=== PATIENT | female | born 1950 | race Caucasian/White ===

== ENCOUNTER → 2017-03-20 | Outpatient (CLI) | payer BC ==
[~2017-03-20] MED LIST: ALBU1AER9 INH; ASCO1CAP3 PO; CALCTAB5 PO; FLUT0.15; FLUT110A INH; MISCCAP80 PO; SRVDIN60 INH
[2017-03-20 12:26] LABS: BLOOD UREA NITROGEN 15 mg/dl (7-18); BUN/CREATININE RATIO 19.8 (10-20); CALCIUM 8.9 mg/dl (8.5-10.1); CARBON DIOXIDE 26 mmol/L (21-32); CHLORIDE 107 mmol/L (98-107); CREATININE 0.78 mg/dl (0.60-1.20); GLUCOSE 104 mg/dl (70-99); POTASSIUM 3.7 mmol/L (3.5-5.1); SODIUM 140 mmol/L (136-145)
[2017-03-20 12:30] LABS: CHOLESTEROL 262 mg/dl (0-200); CHOLESTEROL/HDL RATIO 5.1; HDL CHOLESTEROL 51 mg/dl; LDL CHOLESTEROL CALCULATED 161 mg/dl; TRIGLYCERIDES 250 mg/dl (0-150); VERY LOW DENSITY LIPOPROT CALC 50 mg/dl
== END | disposition home or self-care (01) ==
LOC: C.LABPBG 08:18
PROVIDERS: ATTEND Family Medicine
DX: E78.5 Hyperlipidemia, unspecified (principal); Z11.59 Encounter for screening for other viral diseases

== ENCOUNTER 2017-06-12 07:01 | Inpatient (IN) | payer BC, OTHER ==
[2017-05-12 11:32] VITALS: Ht 156.2 cm; Wt 79.0 kg
--- NOTE | 2017-05-12 12:13 | PAT Medication Instructions ---
Service Date May 12, 2017. Current Home Medication List Albuterol Sulfate (Proair Respiclick), 2 PUFFS INH PRN Azithromycin (Zithromax), 250 MG PO QAM Diclofenac (Voltaren), 75 MG PO BID Fish Oil (Wheeling-3), 1 CAP PO QAM Fluticasone Propionate (Inhala (Flovent Diskus), 1 PUFFS INH BID Fluticasone Propionate (Nasal) (Flonase Allergy Relief), 2 SPRAYS INTNAS QPM Hydrocodone/Acetaminophen 5MG/325MG (Cutler 5MG/325MG), 1 TABLET PO PRN PRN for Pain Ibuprofen (Advil), 400-800 MG PO PRN Multivitamin (Multivitamin), 1 TAB PO QAM Prednisone (Prednisone), 10 MG PO TAPERING DOSE Salmeterol Xinafoate (Serevent Diskus), 50 MCG INH BID Medication Instructions For Your Scheduled Surgery -Continue as directed: Azithromycin (Zithromax), 250 MG PO QAM Prednisone (Prednisone), 10 MG PO TAPERING DOSE -Contact your surgeon for instructions for: Diclofenac (Voltaren), 75 MG PO BID Ibuprofen (Advil), 400-800 MG PO PRN - Hold the following medications 2 weeks prior to surgery: Fish Oil (Wheeling-3), 1 CAP PO QAM - Hold the following medications the morning of surgery: Multivitamin (Multivitamin), 1 TAB PO QAM - Take the following medications the morning of surgery with a sip of water: Salmeterol Xinafoate (Serevent Diskus), 50 MCG INH BID Fluticasone Propionate (Inhala (Flovent Diskus), 1 PUFFS INH BID Hydrocodone/Acetaminophen 5MG/325MG (Cutler 5MG/325MG), 1 TABLET PO PRN PRN for Pain (if needed, can be taken up to four hours before surgery) Albuterol Sulfate (Proair Respiclick), 2 PUFFS INH PRN (if needed, and bring it with you the morning of the surgery) - Take the following medications as scheduled the night before surgery: Salmeterol Xinafoate (Serevent Diskus), 50 MCG INH BID Fluticasone Propionate (Inhala (Flovent Diskus), 1 PUFFS INH BID Fluticasone Propionate (Nasal) (Flonase Allergy Relief), 2 SPRAYS INTNAS QPM Hydrocodone/Acetaminophen 5MG/325MG (Cutler 5MG/325MG), 1 TABLET PO PRN PRN for Pain (if needed) If you have any questions please call us at [phone] or [phone] or [phone]
[2017-05-12 12:43] LABS: BASO % 0.6 %; BASO ABS # 0.05 K/uL (0-0.2); EOS % 0.2 %; EOS ABS # 0.02 K/uL (0-0.5); HEMATOCRIT 40.1 % (37-47); HEMOGLOBIN 13.8 g/dL (12.0-16.0); IG# 0.03 K/uL (0.00-0.02); LYMPH % 13.5 %; LYMPH ABS # 1.09 K/uL (1.2-3.4); MEAN CELL VOLUME 89.1 fL (80-100); MEAN CORPUSCULAR HEMOGLOBIN 30.7 pg (25-34); MEAN CORPUSCULAR HGB CONC 34.4 g/dl (32-36); MEAN PLATELET VOLUME 9.1 fL (7.4-10.4); MONO ABS # 0.24 K/uL (0.11-0.59); NEUT % 82.3 %; NEUT ABS # 6.63 K/uL (1.4-6.5); PLATELET COUNT 361 K/uL (130-400); RED CELL DISTRIBUTION WIDTH CV 13.7 % (11.5-14.5); RED CELL DISTRIBUTION WIDTH SD 44.3 fL (36.4-46.3); WHITE BLOOD COUNT 8.06 K/uL (4.8-10.8)
[2017-05-12 12:50] LABS: PTT PATIENT 28.2 SECONDS (21.0-31.0)
--- NOTE | 2017-05-12 13:17 | DIAGNOSTIC IMAGING REPORT ---
TWO VIEW CHEST CLINICAL HISTORY: Preoperative examination. FINDINGS: PA and lateral chest radiographs are compared to study dated 02/11/2015. The cardiomediastinal silhouette is unremarkable. The lungs and pleural spaces are clear. There is no pneumothorax. The skeletal structures are osteopenic. The bony thorax appears intact. IMPRESSION: No active disease in the chest. Electronically signed by: Dawit Mora M.D. 05/12/2017 1:15 PM Dictated Date/Time: 05/12/2017 1:15 PM
[2017-05-12 13:57] LABS: CALCIUM 9.6 mg/dl (8.5-10.1); CREATININE 0.88 mg/dl (0.60-1.20); POTASSIUM 3.8 mmol/L (3.5-5.1)
--- NOTE | 2017-06-11 16:05 | HISTORY & PHYSICAL EXAMINATION ---
DATE OF ADMISSION: 06/12/2017 CHIEF COMPLAINT: Advanced osteoarthritis bilateral knees. HISTORY OF PRESENT ILLNESS: Gely is a very pleasant 67-year-old female who I did a partial medial meniscectomy on her left knee in the past. Unfortunately, she has gone on to develop advanced osteoarthritis of both knees. Her knee pain has gotten to the point where she is having trouble doing simple daily activities. After failing extensive conservative treatment including multiple injections, she has elected to proceed with bilateral total knee arthroplasties. PAST MEDICAL HISTORY: Significant for hyperlipidemia, asthma and obesity. MEDICATIONS: ProAir 2 puffs as needed, Zithromax 250 mg daily, Voltaren as needed for pain, Flonase 1 puff twice a day, prednisone 10 mg as a tapered dose, and Serevent Diskus 50 mcg twice a day. PAST SURGICAL HISTORY: Significant for hysterectomy, appendectomy, carpal tunnel release, lumpectomy of the breast, cataract surgery, surgery to her shoulder, left knee arthroscopy, and colonoscopy. ALLERGIES: EZETIMIBE. SOCIAL HISTORY: She denies any tobacco, alcohol or IV drug use. FAMILY HISTORY: Denies. REVIEW OF SYSTEMS: She complains of bilateral knee pain. All other pertinent review of systems are negative. PHYSICAL EXAMINATION: CONSTITUTIONAL: She is a well-developed, well-nourished female in no apparent distress. HEENT: Pupils equal, round and reactive to light. Extraocular motion intact. Oral mucosa is pink and moist. HEART: Regular rate per radial pulse. LUNGS: Naty symmetrically bilaterally with no audible breath sounds. ABDOMEN: Soft, nontender, nondistended. MUSCULOSKELETAL: On physical examination of her knee she ambulates independently. She has good range of motion from 0-130 degrees. She has significant pain along the medial joint line and over the distal medial femoral condyle. X-rays of both knees do show advanced medial compartmental arthritis with joint space narrowing and osteophyte formation. IMPRESSION: Advanced osteoarthritis bilateral knees. PLAN: Will proceed with bilateral total knee arthroplasty. Postoperatively, she will be kept in the hospital for postoperative medical management and started on aspirin for DVT prophylaxis.
[~2017-06-12] VITALS: Ht 156.2 cm; Wt 79.0 kg
[2017-06-12] VITALS (8 sets, daily range): BP systolic 115–155; BP diastolic 71–84; PULSE 67–100; TEMP 36.4–36.9; O2SAT 91–99
[2017-06-12] MEDS: ROPIVACAINE 5MG/ML 30 ML 150 MG, BUPIVACAINE 0.5% MPF INJ 30 ML, EpINEphrine HCL INJ 0.... INFIL SCH ×16 (06:01→11:07)
[2017-06-12] MEDS: TRANEXAMIC ACID INJ 1,000 MG x 2 Bags IV SCH ×4 (06:30→08:43)
[~2017-06-12 07:01] MED LIST changes: +ACETAMINOPHEN 500 MG TAB PO SCH; +ALBU18002 INH; -ALBU1AER9 INH; -ASCO1CAP3 PO; +AZIT250T PO; +BUPIVACAINE 0.25% 30 ML VIAL ONE; +BUPIVACAINE 0.5 % 5 MG/1 ML PF 10ML VIAL ONE; -CALCTAB5 PO; +CEFAZOLIN 2000MG IV PUSH 15 ML IV SCH; +DICL-201 PO; +FAMOTIDINE 20 MG TAB PO SCH; -FLUT0.15; +FLUT0.15 INTNAS; -FLUT110A INH; +FLUT1AER5 INH; +GABAPENTIN 600 MG PO SCH; +HYDR-5688 PO; +IBUP-1050 PO; +LACTATED RINGER'S 1000ML 1,000 ML IV SCH; +LACTATED RINGER'S 1000ML 500 ML IV SCH; +LACTATED RINGER'S 1000ML IV SCH; -MISCCAP80 PO; +MULT-506 PO; +OMEG10007 PO; +PATIENT'S ALLERGY INFO NEEDS ENTERED SCH; +PRED10TA PO
[2017-06-12] MEDS ORDERED: FENTANYL CITRATE INJ 50 MCG/1 ML 2 ML VIAL ONE (08:40)
[2017-06-12] MEDS ORDERED: MIDAZOLAM HCL 1 MG/ML 2ML VIAL ONE (08:40)
[2017-06-12] MEDS ORDERED: PROPOFOL IV EMULSION 10 MG/ML 20 ML VIAL IV ONE ×3 (08:40→10:36)
--- NOTE | 2017-06-12 09:14 | History & Physical Bridge Note ---
H&P Re-Evaluation Bridge Note: I have examined the patient, reviewed the History & Physical and in the interval since the performance of the History & Physical I have noted the following changes of clinical significance: No changes noted
[2017-06-12] MEDS ORDERED: ORTHO JOINT ANESTHETIC ONE (09:16)
[2017-06-12] MEDS ORDERED: BACITRACIN 50000 UNIT VIAL ONE ×2 (09:16→11:07)
[2017-06-12] MEDS ORDERED: ATROPINE SULFATE 0.1 MG/ML 5ML SYR IV PRN (09:45)
[2017-06-12] MEDS ORDERED: EpHEDrine SULFATE INJ 50 MG/ML AMP IV PRN (09:45)
[2017-06-12] MEDS ORDERED: ONDANSETRON INJ 2 MG/ML 2 ML VIAL IV PRN ×2 (09:45→12:30)
[2017-06-12] MEDS ORDERED: FENTANYL CITRATE INJ 50 MCG/1 ML 2 ML VIAL IV PRN (09:45)
[2017-06-12] MEDS ORDERED: DiphenhydrAMINE HCL 50 MG/ML VIAL ONE (10:36)
--- NOTE | 2017-06-12 12:22 | [facility] Post Operative Brief Note ---
Immediate Operative Summary Operative Date Jun 12, 2017. Pre-Operative Diagnosis Degenerative Joint Disease Bilateral Knees Post-Operative Diagnosis Degenerative Joint Disease Bilateral Knees Procedure(s) Performed Bilateral Total Knee Arthroplasty Surgeon Farooq Auto Driver Surgeon(s) Lito Estimated Blood Loss 50cc Findings Consistent with Post-Op Diagnosis Specimens A. Bone/Tissue Right Knee B. Bone/Tissue Left Knee Anesthesia Type MAC Spinal Regional Complication(s) none Disposition Disposition: Recovery Room / PACU
[2017-06-12] MEDS ORDERED: CEFAZOLIN IV 2,000 MG in DEXTROSE 5% 50ML 50 ML IV SCH (12:30)
[2017-06-12] MEDS ORDERED: MAGNESIUM HYDROXIDE SUSP 30 ML UDC PO PRN (12:30)
[2017-06-12] MEDS ORDERED: BISACODYL 10 MG SUPP PR PRN (12:30)
[2017-06-12] MEDS ORDERED: METOCLOPRAMIDE HCL INJ 5 MG/ML 2 ML VIAL IV PRN (12:30)
[2017-06-12] MEDS ORDERED: SOD PHOSPHATE/SOD BIPHOSPHATE ENEMA 132 ML BTL PR PRN (12:30)
--- NOTE | 2017-06-12 12:52 | DIAGNOSTIC IMAGING REPORT ---
R KNEE 1 OR 2 VIEWS ROUTINE CLINICAL HISTORY: AP/LATERAL IN PACU RIGHT KNEE postoperative COMPARISON: None. DISCUSSION: Anatomic alignment status post total right knee arthroplasty. Good contact between prosthetic and underlying bone. Expected soft tissue postoperative change. IMPRESSION: Anatomic alignment posttotal right knee arthroplasty. The above report was generated using voice recognition software. It may contain grammatical, syntax or spelling errors. Electronically signed by: Samson Simons M.D. 06/12/2017 12:51 PM Dictated Date/Time: 06/12/2017 12:50 PM
--- NOTE | 2017-06-12 12:53 | DIAGNOSTIC IMAGING REPORT ---
L KNEE 1 OR 2 VIEWS ROUTINE CLINICAL HISTORY: AP/LATERAL IN PACU LEFT KNEE postoperative COMPARISON: None. DISCUSSION: Patient is post total left knee arthroplasty. Good contact between prosthetic and underlying bone. Expected soft tissue postoperative change. IMPRESSION: Anatomic alignment posttotal left knee arthroplasty. The above report was generated using voice recognition software. It may contain grammatical, syntax or spelling errors. Electronically signed by: Samson Simons M.D. 06/12/2017 12:52 PM Dictated Date/Time: 06/12/2017 12:51 PM
--- NOTE | 2017-06-12 12:56 | OPERATIVE REPORT ---
DATE OF OPERATION: 06/12/2017 PREOPERATIVE DIAGNOSIS: Primary osteoarthritis of the bilateral knees. POSTOPERATIVE DIAGNOSIS: Same. PROCEDURE: Bilateral total knee arthroplasties. SURGEON: Dr. Jw Trivedi. MARKETING DEVELOPMENT MANAGER: Jw Morse PA-C, whose assistance was necessary for retraction and closure. ANESTHESIA: Spinal with bilateral adductor nerve block. COMPLICATIONS: None. CONDITION: Stable to PACU. IMPLANTS USED: I used the same implant sizes on both knees. I used a Biomet Vanguard total knee arthroplasty with a size 62.5 femur, size 63 tibia, size 25 patella and a size 10 posterior stabilized bearing. INDICATIONS: Gely is a pleasant a 67-year-old female who initially presented to my office with chronic bilateral knee pain. I did a knee arthroscopy on her in the past, but unfortunately, she has continued to progress with arthritis. After failing extensive conservative treatment including multiple injections, she elected to undergo bilateral total knee arthroplasties. DESCRIPTION OF PROCEDURE: On 06/12/2017, she arrived at [facility] for the above procedure. She was seen in the preoperative holding area and the operative extremity was identified and signed. She was given a preoperative antibiotic, a spinal anesthetic and bilateral adductor nerve blocks. She was taken back to the operating room, laid on the table in supine position and put under basic sedation. Both knees were then prepped and draped in sterile fashion. Time-out was done and the patient's operative extremity was properly identified. The right knee was done first. A midline incision was made directly over the patella. Dissection was taken down through the fascia and a medial parapatellar arthrotomy was used. The medial retinaculum was released. The ACL and PCL were excised and the knee was flexed. The fat pad was left intact. A drill was sent down the center of the femoral canal, followed by an intramedullary allie. Off that allie, a distal femoral cutting block was placed. A 12 mm was resected off the distal femur at 5 degrees of valgus. A posterior referencing guide was then used to measure the distal femur and it measured to be a size 62.5. Two drill holes were placed in 3 degrees of external rotation. A 4-in-1 cutting block was then impacted into place. Anterior, posterior and chamfer cuts were then made. The box cutting guide was then impacted into place and the box was resected for the posterior stabilizing component. The proximal tibia was then exposed. A drill was sent down the center of the tibial canal followed by an intramedullary allie. Off that allie, a proximal tibial resection guide was placed. A 2 mm was resected off the low medial side. The tibia was then measured to be a size 63. It was set in the appropriate rotation, drilled and then punched. The posterior aspect of the knee was then opened up. Any remaining meniscal fragments and osteophytes were then removed in the back of the knee. Trial components were then placed. The knee was brought through a full range of motion and felt to be stable. The patella was then everted and 8 mm was resected off the posterior aspect of the patella. The patella measured to be a size 25. Three peg holes were drilled. Trial components were then removed. The surrounding soft tissues were injected with 50 mL of an orthopedic pain control cocktail. The final components were then cemented in place with Palacos-G cement. A size 10 polyethylene insert was then snapped into place and anterior bar was locked. The knee was then irrigated with 3 liters of normal saline solution with bacitracin. Two drains were placed. The extensor mechanism was closed with #2 FiberWire suture in the superior medial aspect and #1 Vicryl, both proximally and distally. Skin was closed with 2-0 Vicryl, 3-0 V-Loc suture and bernie. She was placed in a soft compressive dressing. The same procedure was done on the left knee in the same fashion. There were no differences between the two sides. After dressings were on both knees, she was then transferred to a hospital bed and taken to the postanesthesia care unit in stable condition. She tolerated the procedure well. I attest to the content of the Intraoperative Record and any orders documented therein. Any exception s are noted below.
--- NOTE | 2017-06-12 13:05 | Anesthesiology Progress Note ---
Anesthesia Post Op Note Date & Time Jun 12, 2017 at 13:05 Vital Signs Pain Intensity: 0 Vital Signs Past 12 Hours Date Time Temp Pulse Resp B/P (MAP) Pulse Ox O2 Delivery O2 Flow Rate FiO2 06/12/17 12:50 74 12 115/58 100 Oxymask 10 06/12/17 12:40 80 16 115/56 99 Oxymask 10 06/12/17 12:30 86 14 116/63 97 Oxymask 10 06/12/17 12:20 36.6 90 16 109/70 95 Oxymask 10 06/12/17 07:38 36.6 100 18 155/80 97 Room Air Notes Mental Status: alert / awake / arousable, participated in evaluation Pt Amnestic to Procedure: Yes Nausea / Vomiting: adequately controlled Pain: adequately controlled Airway Patency, RR, SpO2: stable & adequate BP & HR: stable & adequate Hydration State: stable & adequate Neuraxial Anesthesia: was administered, sensory block is resolving Anesthetic Complications: no major complications apparent
[2017-06-12] MEDS ORDERED: NURSING VERBAL MED ORDER ONE (17:00)
[2017-06-12] MEDS: KETOROLAC TROMETHAMINE 15 MG/ML VIAL IV. SCH ×2 (17:50→23:23)
[2017-06-12] MEDS: CEFAZOLIN IV 2,000 MG in SYRINGE 0 ML IV SCH (18:22)
[2017-06-12] MEDS: OXYCODONE HCL IR 5 MG TAB (IMMEDIATE RELEASE) PO PRN ×2 (19:23→23:23)
[2017-06-12] MEDS: SODIUM CHLORIDE 0.9% 1000ML 1,000 ML IV SCH ×2 (20:43→23:56)
[2017-06-12] MEDS: FLUTICASONE HFA 110MCG INHALER INH SCH (20:45)
[2017-06-12] MEDS: SALMETEROL XINAFOATE 50MCG 28 BLISTER INH INH SCH (20:45)
[2017-06-12] MEDS: FLUTICASONE PROPIONATE NA SPR 16 GM BTL SCH (20:46)
[2017-06-12] MEDS: ASPIRIN 325 MG ECTAB PO SCH (20:47)
[2017-06-12] MEDS: SENNA 8.6 MG TAB PO SCH (20:47)
[2017-06-12] MEDS: DOCUSATE SODIUM 100 MG CAP PO SCH (20:47)
[2017-06-12] MEDS: ACETAMINOPHEN 500 MG TAB PO SCH (21:29)
[2017-06-12] MEDS: ALBUTEROL HFA INHALER 8.5 GM INH PRN (23:28)
[2017-06-13] MEDS: CEFAZOLIN IV 2,000 MG in SYRINGE 0 ML IV SCH (01:48)
[2017-06-13 03:27] VITALS: BP 108/69; PULSE 89; TEMP 36.9; O2SAT 91
[2017-06-13] MEDS: ALBUTEROL HFA INHALER 8.5 GM INH PRN (05:19)
[2017-06-13] MEDS: KETOROLAC TROMETHAMINE 15 MG/ML VIAL IV. SCH ×4 (05:20→23:40)
[2017-06-13] MEDS: ACETAMINOPHEN 500 MG TAB PO SCH ×3 (05:20→21:37)
[2017-06-13] MEDS: OXYCODONE HCL IR 5 MG TAB (IMMEDIATE RELEASE) PO PRN ×4 (05:22→21:34)
[2017-06-13] MEDS: SODIUM CHLORIDE 0.9% 1000ML 1,000 ML IV SCH ×2 (05:34→11:04)
[2017-06-13 07:02] VITALS: BP 120/72; PULSE 81; TEMP 36.9; O2SAT 92
[2017-06-13 07:16] LABS: HEMATOCRIT 34.6 % (37-47); HEMOGLOBIN 11.6 g/dL (12.0-16.0); MEAN CELL VOLUME 88.7 fL (80-100); MEAN CORPUSCULAR HEMOGLOBIN 29.7 pg (25-34); MEAN CORPUSCULAR HGB CONC 33.5 g/dl (32-36); MEAN PLATELET VOLUME 8.9 fL (7.4-10.4); PLATELET COUNT 318 K/uL (130-400); RED CELL DISTRIBUTION WIDTH CV 13.7 % (11.5-14.5); RED CELL DISTRIBUTION WIDTH SD 44.6 fL (36.4-46.3)
[2017-06-13 07:42] LABS: CALCIUM 8.6 mg/dl (8.5-10.1); CREATININE 1.03 mg/dl (0.60-1.20); POTASSIUM 4.1 mmol/L (3.5-5.1)
[2017-06-13] MEDS: FLUTICASONE HFA 110MCG INHALER INH SCH ×2 (08:04→21:35)
[2017-06-13] MEDS: SALMETEROL XINAFOATE 50MCG 28 BLISTER INH INH SCH ×2 (08:04→21:35)
[2017-06-13] MEDS: MULTIVITAMIN TAB PO SCH (08:04)
[2017-06-13] MEDS: ASPIRIN 325 MG ECTAB PO SCH ×2 (08:05→21:36)
[2017-06-13] MEDS: DOCUSATE SODIUM 100 MG CAP PO SCH ×2 (08:05→21:36)
--- NOTE | 2017-06-13 09:00 | PROGRESS NOTE ---
DATE: 06/13/2017 CHIEF COMPLAINT: Status post bilateral total knee arthroplasty, postop day #1. PROGRESS: Gely was seen and examined at bedside today. She was sitting up and eating breakfast. She had very little pain in her knees. She was up and ambulating to the bathroom last night. She has no complaints. PHYSICAL EXAMINATION: On physical examination of both knees, the dressings are clean and dry and the drain is to suction. She has active dorsiflexion and plantarflexion of both ankles and sensation is intact. She did not have JANIE hose stockings on her legs when I saw her today. She was taking a break from them. LABORATORY DATA: She has an H&H today of 11.6 and 34.6. Her glucose is 114. VITAL SIGNS: All stable on room air. She is voiding on her own and her Hemovac put out 90 mL since last night. IMAGING STUDIES: X-rays postoperatively of both knees show the prosthesis to be in anatomic alignment without any evidence of fracture, dislocation, or loosening. IMPRESSION: Status post bilateral total knee arthroplasty, postop day #1. PLAN: At this point, she is doing well and happy with her progress. She is on aspirin for DVT prophylaxis. She has been up and ambulating today with physical therapy. Tomorrow morning, the nursing staff can change the dressing, pull the drains and will look at discharging her home.
[2017-06-13] MEDS: MoRPHine SULFATE 2 MG/ML CARP IV PRN ×3 (11:46→23:42)
[2017-06-13 11:51] VITALS: BP 148/67; PULSE 89; TEMP 36.8; O2SAT 98
[2017-06-13 15:14] VITALS: BP 146/74; PULSE 84; TEMP 37; O2SAT 96
[2017-06-13] MEDS: SENNA 8.6 MG TAB PO SCH (21:36)
[2017-06-13] MEDS: FLUTICASONE PROPIONATE NA SPR 16 GM BTL SCH (21:36)
[2017-06-13 23:29] VITALS: BP 132/74; PULSE 93; TEMP 37.2; O2SAT 92
[2017-06-14] MEDS: ACETAMINOPHEN 500 MG TAB PO SCH ×3 (05:18→21:28)
[2017-06-14] MEDS: KETOROLAC TROMETHAMINE 15 MG/ML VIAL IV. SCH ×2 (05:19→11:18)
[2017-06-14] MEDS: DOCUSATE SODIUM 100 MG CAP PO SCH ×2 (08:28→21:26)
[2017-06-14] MEDS: ASPIRIN 325 MG ECTAB PO SCH ×2 (08:28→21:26)
[2017-06-14] MEDS: FLUTICASONE HFA 110MCG INHALER INH SCH ×2 (08:28→21:25)
[2017-06-14] MEDS: SALMETEROL XINAFOATE 50MCG 28 BLISTER INH INH SCH ×2 (08:28→21:25)
[2017-06-14] MEDS: MULTIVITAMIN TAB PO SCH (08:28)
[2017-06-14] MEDS: OXYCODONE HCL IR 5 MG TAB (IMMEDIATE RELEASE) PO PRN ×4 (08:30→21:25)
[2017-06-14] MEDS ORDERED: RXC5 PO (08:34)
[2017-06-14] MEDS ORDERED: ASPEC325 PO (08:34)
--- NOTE | 2017-06-14 08:35 | Discharge Instructions ---
Discharge Instructions Date of Service Jun 14, 2017. Admission Reason for Admission: Bilateral Knee Degenerative Joint Disease Discharge Discharge Diagnosis / Problem: Bilateral Total Knees Discharge Goals Goal(s): Decrease discomfort, Improve function Activity Recommendations Activity Limitations: as noted below . Instructions / Follow-Up Instructions / Follow-Up Activity and Therapy Recommendations: * If you are using [facility] then Physical Therapy will be provided until they feel you are ready to start Outpatient Physical Therapy. If you are not using a Home Health agency then Outpatient Physical Therapy should start about 3-5 days from your day of surgery. Therapy will last about 6-10 weeks * It is important not to put a pillow under your knee when you are relaxing or sleeping. It is just as important to make sure you are getting your knee perfectly straight as it is to regain your knee bend. * You were shown a series of exercises in the hospital. Do these exercises three times each day including the exercises you were shown in physical therapy. * Get up and walk several times each day. For the first four weeks, try not to stand or walk for more than one hour at a time. If you do stand or walk for more than one hour, you will not hurt anything, but your leg will likely swell. * As you feel comfortable, you may change from the walker or crutches to a cane and then to independent walking. Medications: * Narcotic You will likely be sent home from the hospital with a prescription for the narcotic pain medication that worked best throughout your stay. * Aspirin Most patients will be required to take Aspirin 325mg twice a day for 6 weeks after surgery. This is obtained [id number] and a prescription is not necessary. * Other medications may be prescribed for specific circumstances. If you have any questions, please call the office at . * Resume previous home medications unless otherwise instructed TEDs/Elastic Stockings: The white elastic stockings help limit swelling and prevent blood clots from forming in your legs.~ The more you wear them, the more they work. Wear them for six weeks. Showering: You may shower 5 days from the day of surgery. Let the soapy shower water run over the bernie. Do not scrub or soak the incision. Things To Watch For: * Drainage from the incision site that occurs more than one week after your surgery. * Increased redness at the incision site. * Fever above 102 degrees Fahrenheit. * Unusual chest pain or shortness of breath. * Call [facility] at with any of the above problems Follow-Up Visit: Follow-up with Dr. Trivedi 2 weeks after your day of surgery. An appointment was probably scheduled when you signed-up for surgery in the office. If you have any questions call Office Instructions: More detailed instructions as well as Frequently Asked Questions were provided in a folder by our office when you signed-up for surgery. Please review these instructions when you get home. If you have any further questions or concerns, please feel free to call the office at [phone] Current Hospital Diet Patient's current hospital diet: Regular Diet Discharge Diet Recommended Diet: Regular Diet Procedures Procedures Performed: Bilateral Total Knee Arthroplasty Pending Studies Studies pending at discharge: no Laboratory Results Lipid Panel Test 03/20/17 08:26 Range/Units Triglycerides Level 250 H 0-150 mg/dl Cholesterol Level 262 H 0-200 mg/dl HDL Cholesterol 51 mg/dl Cholesterol/HDL Ratio 5.1 LDL Cholesterol, Calculated 161 mg/dl Medical Emergencies . Who to Call and When: Medical Emergencies: If at any time you feel your situation is an emergency, please call 911 immediately. . Non-Emergent Contact Non-Emergency issues call your: Surgeon Call Non-Emergent contact if: wound has increased drainage, wound has increased redness . "Provider Documentation" section prepared by Jw Trivedi. . VTE Core Measure Inpt VTE Proph given/why not?: Other Anticoagulation (Aspirin 325 twice a day for 6 weeks)
--- NOTE | 2017-06-14 08:57 | PROGRESS NOTE ---
DATE: 06/14/2017 CHIEF COMPLAINT: Status post bilateral total knee arthroplasty, postop day #2. PROGRESS: Gely was seen and examined at bedside today. Overall, she is doing fairly well. Her pain is better today. She was having an awful lot of pain yesterday. She was able to ambulate with physical therapy down the hallway and back, but by the time she got back, she was having a lot of pain in her knees. She was able to get some sleep last night and is feeling a little better today. She is not sure about going home today. PHYSICAL EXAMINATION: Both knees: The dressings have been changed and the drains have been pulled. She is sitting with both her knees flexed at bedside. She is neurovascularly intact. VITAL SIGNS: All stable on room air. She is voiding on her own. She has not had a bowel movement yet. IMPRESSION: Status post bilateral total knee arthroplasty, postop day #2. PLAN: At this point, she is doing fairly well. She is having some pain in her knee. She is concerned if her will be able to take care of her if she goes home today. I think it is reasonable to keep her for today and get a little bit more therapy and make sure we have her pain under control. We are planning to discharge her to home tomorrow. We will continue aspirin for DVT prophylaxis as long as she is up and ambulating well.
[2017-06-14 09:21] VITALS: BP 150/76; PULSE 111; TEMP 36.7; O2SAT 93
[2017-06-14 15:18] VITALS: BP 168/83; PULSE 115; TEMP 36.8; O2SAT 97
[2017-06-14 16:36] VITALS: BP 131/76; PULSE 100; O2SAT 93
[2017-06-14] MEDS: FLUTICASONE PROPIONATE NA SPR 16 GM BTL SCH (21:26)
[2017-06-14] MEDS: SENNA 8.6 MG TAB PO SCH (21:27)
[2017-06-14 22:49] VITALS: BP 144/69; PULSE 106; TEMP 36.9; O2SAT 93
[2017-06-15] MEDS: OXYCODONE HCL IR 5 MG TAB (IMMEDIATE RELEASE) PO PRN ×3 (02:31→11:25)
[2017-06-15] MEDS: ACETAMINOPHEN 500 MG TAB PO SCH ×2 (05:59→13:35)
[2017-06-15 06:38] VITALS: BP 163/84; PULSE 102; TEMP 36.9; O2SAT 92
[2017-06-15] MEDS: SALMETEROL XINAFOATE 50MCG 28 BLISTER INH INH SCH (07:28)
[2017-06-15] MEDS: DOCUSATE SODIUM 100 MG CAP PO SCH (07:28)
[2017-06-15] MEDS: FLUTICASONE HFA 110MCG INHALER INH SCH (07:28)
[2017-06-15] MEDS: ASPIRIN 325 MG ECTAB PO SCH (07:28)
[2017-06-15] MEDS: MULTIVITAMIN TAB PO SCH (07:29)
[2017-06-15 08:01] VITALS: O2SAT 97
[2017-06-15 08:03] VITALS: BP 163/84; PULSE 102; TEMP 36.9; O2SAT 97
--- NOTE | 2017-06-15 08:03 | Anesthesiology Progress Note ---
Anesthesia Post Op Note Date & Time Jun 15, 2017 at 08:03 Vital Signs Pain Intensity: 5.0 Vital Signs Past 12 Hours Date Time Temp Pulse Resp B/P (MAP) Pulse Ox O2 Delivery O2 Flow Rate FiO2 06/15/17 08:01 97 Room Air 06/15/17 07:30 Room Air 06/15/17 06:38 36.9 102 16 163/84 (110) 92 Room Air 06/14/17 23:57 Room Air 06/14/17 22:49 36.9 106 17 144/69 (94) 93 Room Air Notes Mental Status: alert / awake / arousable, participated in evaluation Pt Amnestic to Procedure: Yes Nausea / Vomiting: adequately controlled Pain: adequately controlled Airway Patency, RR, SpO2: stable & adequate BP & HR: stable & adequate Hydration State: stable & adequate Neuraxial Anesthesia: was administered, sensory block resolved Anesthetic Complications: no major complications apparent
--- NOTE | 2017-06-23 18:33 | DISCHARGE SUMMARY ---
DISCHARGE DIAGNOSIS: Primary osteoarthritis bilateral knees. PROCEDURE: Bilateral total knee arthroplasties on 06/12/[address] Jw Trivedi. DISCHARGE INSTRUCTIONS: 1. Aspirin 325 mg twice a day for 6 weeks. 2. JANIE hose stockings for 6 weeks. 3. Oxycodone 5-10 mg every 4 hours as needed for pain. 4. Albuterol 2 puffs as needed. 5. Voltaren 75 mg twice a day. 6. Fish oil daily. 7. Flovent 1 puff twice a day. 8. Flonase 2 puffs daily. 9. Cornish as needed for pain if the oxycodone is not helping. 10. Serevent Diskus 50 mcg twice a day. 11. Daily multivitamin. 12. Follow up with Dr. Trivedi in 2 weeks. 13. Call the office of Dr. Trivedi with any questions or concerns. 14. [facility] this week. HOSPITAL COURSE: Gely is a pleasant 67-year-old female who presented to my office with complaints of chronic increasing bilateral knee pain. X-rays and clinical examination were diagnostic for advancing arthritis of bilateral knees. After failing conservative treatment, she elected to undergo bilateral total knee arthroplasties. On 06/12/2017, she arrived at [facility] and underwent bilateral total knee arthroplasties without complication. She had a spinal anesthetic. Postoperatively, she was started on aspirin for DVT prophylaxis and discharged to general orthopedic floors. Her hospital course was uneventful. On postop day #1, her H&H was stable at 11.6 and 34.6. She was up and ambulating some with physical therapy and her pain was well controlled. On postop day #2, she continued to do well. The dressings were changed and drains were pulled. She got a little bit more physical therapy and I decided to keep her for the day for pain control and to make sure that her legs are strong. On postop day #3, she was feeling better. Her pain was better controlled and she was up and ambulating well with physical therapy. Her vital signs were all stable and she was voiding on her own. She was subsequently discharged to home with [facility] and the above instructions.
== END 2017-06-15 13:47 | disposition home or self-care (01) | DRG 462 ==
LOC: C.ACU 07:01 → C.3E 08:30 → ENRESERV 12:58
PROVIDERS: ADMIT Orthopaedic Surgery; ATTEND Orthopaedic Surgery
PROC: 0SRD0J9 Replacement of Left Knee Joint with Synthetic Substitute, Cemented, Open Approach (ICD-10-PCS; principal; 2017-06-12 09:30)
PROC: 0SRC0J9 Replacement of Right Knee Joint with Synthetic Substitute, Cemented, Open Approach (ICD-10-PCS; principal; 2017-06-12 09:30)
DX: M17.0 Bilateral primary osteoarthritis of knee (principal); J45.909 Unspecified asthma, uncomplicated; E78.5 Hyperlipidemia, unspecified; E66.9 Obesity, unspecified; Z68.32 Body mass index [BMI] 32.0-32.9, adult; Z85.3 Personal history of malignant neoplasm of breast; Z90.49 Acquired absence of other specified parts of digestive tract; Z90.710 Acquired absence of both cervix and uterus; Z98.890 Other specified postprocedural states; Z79.2 Long term (current) use of antibiotics; Z79.899 Other long term (current) drug therapy; Z88.8 Allergy status to other drugs, medicaments and biological substances

== ENCOUNTER → 2017-08-27 | Outpatient (CLI) | payer BC, OTHER ==
[~2017-08-27] MED LIST changes: -ACETAMINOPHEN 500 MG TAB PO SCH; +ASPEC325 PO; -AZIT250T PO; -BUPIVACAINE 0.25% 30 ML VIAL ONE; -BUPIVACAINE 0.5 % 5 MG/1 ML PF 10ML VIAL ONE; -CEFAZOLIN 2000MG IV PUSH 15 ML IV SCH; -FAMOTIDINE 20 MG TAB PO SCH; -GABAPENTIN 600 MG PO SCH; -LACTATED RINGER'S 1000ML 1,000 ML IV SCH; -LACTATED RINGER'S 1000ML 500 ML IV SCH; -LACTATED RINGER'S 1000ML IV SCH; -PATIENT'S ALLERGY INFO NEEDS ENTERED SCH; -PRED10TA PO; +RXC5 PO
[2017-08-27 13:45] LABS: BLOOD UREA NITROGEN 15 mg/dl (7-18); CALCIUM 9.6 mg/dl (8.5-10.1); CARBON DIOXIDE 24 mmol/L (21-32); CHOLESTEROL 234 mg/dl (0-200); CREATININE 0.86 mg/dl (0.60-1.20); GLUCOSE 105 mg/dl (70-99); POTASSIUM 3.9 mmol/L (3.5-5.1); SODIUM 141 mmol/L (136-145)
[2017-08-27 13:49] LABS: LDL CHOLESTEROL CALCULATED 135 mg/dl
== END | disposition home or self-care (01) ==
LOC: C.LABPBG 09:10
PROVIDERS: ATTEND Family Medicine
DX: Z00.00 Encounter for general adult medical examination without abnormal findings (principal); E78.5 Hyperlipidemia, unspecified